=== PATIENT | female | born 1985 | race Hispanic/Latino ===

== ENCOUNTER 2018-12-10 14:08 | Emergency (ER) | payer BC ==
[2018-12-10 15:10] LABS: Absolute Lymphocytes (CBC) 1.5 K/uL (0.7-4.9); Basophils % 0.7 % (0-1.3); Hematocrit 42.4 % (36.0-45.0); Lymphocytes % 20.2 % (15.3-44.8); MPV 10.4 fL (7.6-11.3); RBC Red Blood Cell Count 4.76 M/uL (3.86-4.86)
[2018-12-10] MEDS ORDERED: ONDANSETRON 4 MG/2 ML VIAL ONE (15:19)
[2018-12-10] MEDS ORDERED: NA CHLORIDE 0.9% 1,000 ML ONE (15:19)
[2018-12-10] MEDS ORDERED: MORPHINE 4 MG/ML SYR ONE (15:29)
[2018-12-10 15:52] LABS: Albumin 3.8 g/dL (3.4-5.0); Bilirubin Direct 0.1 mg/dL (0-0.2); Bilirubin Total 0.6 mg/dL (0.2-1.0); Potassium 3.9 mmol/L (3.5-5.1); Protein, Total 8.9 g/dL (6.4-8.2)
--- NOTE | 2018-12-10 16:04 | RAD REPORT ---
EXAM DESCRIPTION: CTAbdomen Pelvis W Contrast - 12/10/2018 3:57 pm CLINICAL HISTORY: Abdominal pain. FLANK PAIN COMPARISON: Extrem Venous W Compress Xavier dated 08/13/2016No comparisonsNo comparisons TECHNIQUE: Biphasic CT imaging of the abdomen and pelvis was performed with 100 ml non-ionic IV cont rast. All CT scans are performed using dose optimization technique as appropriate and may include automated exposure control or mA/KV adjustment according to patient size. FINDINGS: The lung bases are clear. The liver, spleen, pancreas, adrenal glands and kidneys are within normal limits. There is enhancemen t noted of the right uroepithelium. No bowel obstruction, free air, free fluid or abscess. The appendix is normal. No evidence of signi ficant lymphadenopathy. No suspicious bony findings. IMPRESSION: Enhancement of the right uroepithelium is seen, compatible with ascending right-sided ur inary tract infection. No pyelonephritis findings identified.
[2018-12-10 16:24] LABS: Urine Bacteria >50 /HPF (<20); Urine Culture Reflex Order REFLEXED; Urine RBC >50 /HPF (NONE SEEN)
--- NOTE | 2018-12-10 16:27 | ER ---
Nurse's Notes [facility] Name: Mirna Medina Age: 33 yrs Sex: Female : 1985 Arrival Date: 12/10/2018 Time: 14:09 Bed 27 Private MD: Navdeep Daniels Diagnosis: Urinary tract infection, site not specified Presentation: 12/10 14:26 Presenting complaint: Patient states: RLQ pain radiating to mid back this am, yesterday iw had lower abd pain, bladder pressure, painful urination on Friday that resolved. Transition of care: patient was not received from another setting of care. Onset of symptoms was December 07, 2018. Risk Assessment: Do you want to hurt yourself or someone else? Patient reports no desire to harm self or others. Initial Sepsis Screen: Does the patient meet any 2 criteria? No. Patient's initial sepsis screen is negative. Does the patient have a suspected source of infection? No. Patient's initial sepsis screen is negative. Care prior to arrival: None. 14:26 Method Of Arrival: Ambulatory 14:26 Acuity: LEIDA 3 iw Triage Assessment: 15:30 General: Behavior is calm, cooperative, appropriate for age. 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 - Social history:: Smoking status: Patient/guardian denies using tobacco. - Ebola Screening: : Patient negative for fever greater than or equal to 101.5 degrees Fahrenheit, and additional compatible Ebola Virus Disease symptoms Patient denies exposure to infectious person Patient denies travel to an Ebola-affected area in the 21 days before illness onset No symptoms or risks identified at this time. Screenin:41 Abuse screen: Denies threats or abuse. Denies injuries from another. Nutritional screening: No deficits noted. Tuberculosis screening: No symptoms or risk factors identified. Fall Risk None identified. Assessment: 15:30 General: Appears in no apparent distress. uncomfortable. Pain: Complains of pain in wh suprapubic area and right lower quadrant Pain radiates to back Pain currently is 6 out of 10 on a pain scale. Quality of pain is described as dull. Pain: Pain began 1 day ago. Neuro: Level of Consciousness is awake, alert, obeys commands. Cardiovascular: Heart tones S1 S2. Respiratory: Airway is patent Respiratory effort is even, unlabored, Respiratory pattern is regular, symmetrical. GI: Abdomen is flat, non-distended, Bowel sounds present X 4 quads. Abd is soft and non tender X 4 quads. : No signs and/or symptoms were reported regarding the genitourinary system. EENT: No signs and/or symptoms were reported regarding the EENT system. Derm: Skin is intact, is healthy with good turgor, Skin is pink, warm \T\ dry. normal. Musculoskeletal: Range of motion: intact in all extremities. 16:30 Reassessment: Patient appears in no apparent distress at this time. No changes from previously documented assessment. Patient and/or family updated on plan of care and expected duration. Pain level reassessed. Patient is alert, oriented x 3, equal unlabored respirations, skin warm/dry/pink. Patient states feeling better. Patient states symptoms have improved. Vital Signs: 14:34 BP 150 / 81; Pulse 100; Resp 16 S; Temp 98.8; Pulse Ox 100% on R/A; Weight 72.57 kg; iw Height 5 ft. 3 in. (160.02 cm); Pain 5/10; 15:30 BP 123 / 86; Pulse 82; Resp 18; Pulse Ox 99% on R/A; wh 16:30 BP 118 / 80; Pulse 82; Resp 18; Pulse Ox 100% on R/A; wh 14:34 Body Mass Index 28.34 (72.57 kg, 160.02 cm) ED Course: 14:09 Patient arrived in ED. rg4 14:09 Navdeep Daniels MD is Private Physician. rg4 14:21 Richard Evans NP is PHCP. pm1 14:21 Asaf Berg MD is Attending Physician. pm1 14:28 Jean-Claude Abad is Primary Nurse. wh 14:31 Triage completed. iw 14:35 Arm band placed on. iw 14:39 Radiology exam delayed due to lab results not completed at this time. (BUN/Creatinine) sj test not completed at this time. 14:55 Radiology exam delayed due to lab results not completed at this time. test sj not completed at this time. 15:00 Inserted saline lock: 20 gauge in right antecubital area, using aseptic technique. Blood collected. 15:41 Patient has correct armband on for positive identification. Bed in low position. Call light in reach. Side rails up X 1. Pulse ox on. NIBP on. 15:58 CT Abd/Pelvis - IV Contrast Only In Process Unspecified. EDCT 16:42 No provider procedures requiring assistance completed. IV discontinued, intact, bleeding controlled, No redness/swelling at site. Administered Medications: 15:22 Drug: NS 0.9% 1000 ml Route: IV; Rate: 1000 ml; Site: right antecubital; 16:44 Follow up: Response: No adverse reaction; IV Status: Completed infusion 15:22 Drug: Zofran 4 mg Route: IVP; Site: right antecubital; 16:44 Follow up: Response: No adverse reaction; Nausea is decreased 15:30 Drug: morphine 4 mg {Note: RASS 0.} Route: IVP; Site: right antecubital; 16:44 Follow up: Response: No adverse reaction; Pain is decreased; RASS: Alert and Calm (0) Outcome: 16:26 Discharge ordered by MD. pm1 16:43 Discharged to home ambulatory, with family. 16:43 Condition: good 16:43 Discharge instructions given to patient, Instructed on discharge instructions, follow up and referral plans. no drinking with medication, no driving heavy equipment, medication usage, POC UTI Demonstrated understanding of instructions, follow-up care, medications, POC Prescriptions given X 3. 16:45 Patient left the ED. Addendum: 12/13/2018 09:13 Addendum: Culture Results: Positive urine culture. No further action required. Bacteria s s sensitive to prescribed antibiotic. Signatures: Dispatcher [employer] Sana Oseguera Irene, RN RN iw Smirch, Shelby, RN RN ss Marinas, Patrick, SAIMA PRINCIPAL CONSULTING ENGINEER pm1 Kindra Medina4 Jean-Claude Abad
--- NOTE | 2018-12-10 16:28 | EDPHYS ---
Physician Documentation [facility] Name: Mirna Medina Age: 33 yrs Sex: Female : 1985 Arrival Date: 12/10/2018 Time: 14:09 Bed 27 Private MD: Navdeep Daniels ED Physician Asaf Berg HPI: 12/10 14:45 This 33 yrs old Female presents to ER via Ambulatory with complaints of pm1 Abdominal Pain, Low Back Pain. 14:45 The patient presents with abdominal pain right lower quadrant, and right flank pain. pm1 Onset: The symptoms/episode began/occurred yesterday. The symptoms radiate to the right flank. Associated signs and symptoms: Pertinent positives: dysuria, nausea, Pertinent negatives: chest pain, constipation, diarrhea, fever, shortness of breath, vomiting. The symptoms are described as sharp. Modifying factors: The symptoms are alleviated by nothing, the symptoms are aggravated by nothing. Severity of pain: in the emergency department the pain is actually worse. The patient has experienced a previous episode, many years ago, and the symptoms today are exactly the same, UTI. The patient has not recently seen a physician. History of chronic UTI in the past. In 2017 required 3 months of Cipro to resolve UTI. 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 - Social history:: Smoking status: Patient/guardian denies using tobacco. - Ebola Screening: : Patient negative for fever greater than or equal to 101.5 degrees Fahrenheit, and additional compatible Ebola Virus Disease symptoms Patient denies exposure to infectious person Patient denies travel to an Ebola-affected area in the 21 days before illness onset No symptoms or risks identified at this time. ROS: 14:45 Constitutional: Negative for fever, chills, and weight loss, Eyes: Negative for injury, pm1 pain, redness, and discharge, ENT: Negative for injury, pain, and discharge, Neck: Negative for injury, pain, and swelling, Cardiovascular: Negative for chest pain, palpitations, and edema, Respiratory: Negative for shortness of breath, cough, wheezing, and pleuritic chest pain. 14:45 MS/Extremity: Negative for injury and deformity. 14:45 Skin: Negative for injury, rash, and discoloration, Neuro: Negative for headache, weakness, numbness, tingling, and seizure. 14:45 Abdomen/GI: Positive for abdominal pain, nausea, of the right lower quadrant, Negative for vomiting, diarrhea, constipation. 14:45 Back: Positive for flank pain, on the right. 14:45 : Positive for burning with urination. Exam: 14:45 Constitutional: This is a well developed, well nourished patient who is awake, alert, pm1 and in no acute distress. Head/Face: Normocephalic, atraumatic. Eyes: Pupils equal round and reactive to light, extra-ocular motions intact. Lids and lashes normal. Conjunctiva and sclera are non-icteric and not injected. Cornea within normal limits. Periorbital areas with no swelling, redness, or edema. ENT: Nares patent. No nasal discharge, no septal abnormalities noted. Tympanic membranes are normal and external auditory canals are clear. Oropharynx with no redness, swelling, or masses, exudates, or evidence of obstruction, uvula midline. Mucous membranes moist. Neck: Trachea midline, no thyromegaly or masses palpated, and no cervical lymphadenopathy. Supple, full range of motion without nuchal rigidity, or vertebral point tenderness. No Meningismus. Chest/axilla: Normal chest wall appearance and motion. Nontender with no deformity. No lesions are appreciated. Cardiovascular: Regular rate and rhythm with a normal S1 and S2. No gallops, murmurs, or rubs. Normal PMI, no JVD. No pulse deficits. Respiratory: Lungs have equal breath sounds bilaterally, clear to auscultation and percussion. No rales, rhonchi or wheezes noted. No increased work of breathing, no retractions or nasal flaring. Abdomen/GI: Soft, non-tender, with normal bowel sounds. No distension or tympany. No guarding or rebound. No evidence of tenderness throughout. 14:45 Skin: Warm, dry with normal turgor. Normal color with no rashes, no lesions, and no evidence of cellulitis. MS/ Extremity: Pulses equal, no cyanosis. Neurovascular intact. Full, normal range of motion. 14:45 Back: pain, that is mild, of the right low back, normal spinal alignment noted. 14:45 Neuro: Orientation: is normal, Motor: is normal, moves all fours, Gait: is steady, at a normal pace, without difficulty. Vital Signs: 14:34 BP 150 / 81; Pulse 100; Resp 16 S; Temp 98.8; Pulse Ox 100% on R/A; Weight 72.57 kg; iw Height 5 ft. 3 in. (160.02 cm); Pain 5/10; 15:30 BP 123 / 86; Pulse 82; Resp 18; Pulse Ox 99% on R/A; wh 16:30 BP 118 / 80; Pulse 82; Resp 18; Pulse Ox 100% on R/A; wh 14:34 Body Mass Index 28.34 (72.57 kg, 160.02 cm) iw MDM: 14:25 Patient medically screened. pm1 16:25 Data reviewed: vital signs. Data interpreted: Pulse oximetry: on room air is 99 %. pm1 Interpretation: normal. Counseling: I had a detailed discussion with the patient and/or guardian regarding: the historical points, exam findings, and any diagnostic results supporting the discharge/admit diagnosis, lab results, radiology results, the need for outpatient follow up, to return to the emergency department if symptoms worsen or persist or if there are any questions or concerns that arise at home. 12/10 14:33 Order name: Basic Metabolic Panel; Complete Time: 16:07 pm1 12/10 14:33 Order name: CBC with Diff; Complete Time: 15:28 pm1 12/10 14:33 Order name: Creatinine for Radiology; Complete Time: 16:07 pm12/10 14:33 Order name: Hepatic Function; Complete Time: 16:07 pm1 12/10 14:33 Order name: Lipase; Complete Time: 16:07 pm1 12/10 14:33 Order name: Urine Microscopic Only pm12/10 14:33 Order name: IV Saline Lock; Complete Time: 14:58 pm1 12/10 14:33 Order name: CT Abd/Pelvis - IV Contrast Only; Complete Time: 16:18 pm1 12/10 15:05 Order name: Urine Dipstick--Ancillary (enter results) bd 12/10 15:05 Order name: Urine --Ancillary (enter results) 12/10 16:36 Order name: Urine Culture [facility] 12/10 14:33 Order name: Labs collected and sent; Complete Time: 14:58 pm1 12/10 14:33 Order name: Urine Dipstick-Ancillary (obtain specimen); Complete Time: 14:58 pm1 12/10 14:33 Order name: Urine Test (obtain specimen); Complete Time: 14:57 pm1 Administered Medications: 15:22 Drug: NS 0.9% 1000 ml Route: IV; Rate: 1000 ml; Site: right antecubital; 16:44 Follow up: Response: No adverse reaction; IV Status: Completed infusion 15:22 Drug: Zofran 4 mg Route: IVP; Site: right antecubital; 16:44 Follow up: Response: No adverse reaction; Nausea is decreased 15:30 Drug: morphine 4 mg {Note: RASS 0.} Route: IVP; Site: right antecubital; 16:44 Follow up: Response: No adverse reaction; Pain is decreased; RASS: Alert and Calm (0) Disposition: 16:48 Co-signature as Attending Physician, Asaf Berg MD. rn Disposition: 12/10/18 16:26 Discharged to Home. Impression: Urinary tract infection, site not specified. - Condition is Stable. - Discharge Instructions: Urinary Tract Infection, Adult. - Prescriptions for Tylenol- Codeine #3 300-30 mg Oral Tablet - take 2 tablets by ORAL route every 6 hours As needed; 20 tablet. Zofran 4 mg Oral Tablet - take 1 tablet by ORAL route every 12 hours As needed; 20 tablet. Macrobid 100 mg Oral Capsule - take 1 capsule by ORAL route every 12 hours for 10 days; 20 capsule. - Medication Reconciliation Form, Thank You Letter, Antibiotic Education, Prescription Opioid Use form. - Follow up: Emergency Department; When: As needed; Reason: Worsening of condition. Follow up: Private Physician; When: 2 - 3 days; Reason: Recheck today's complaints, Continuance of care, Re-evaluation by your physician. - Problem is new. - Symptoms have improved. Signatures: Dispatcher [employer] Tricia Bridges RN RN iw Nieto, Roman, MD MD rn Marinas, Patrick, RAMP SERVICE EMPLOYEE RAMP SERVICE EMPLOYEE pm1 Habalo, Winsy wh Corrections: (The following items were deleted from the chart) 16:45 16:26 12/10/2018 16:26 Discharged to Home. Impression: Urinary tract infection, site wh not specified. Condition is Stable. Forms are Medication Reconciliation Form, Thank You Letter, Antibiotic Education, Prescription Opioid Use. Follow up: Emergency Department; When: As needed; Reason: Worsening of condition. Follow up: Private Physician; When: 2 - 3 days; Reason: Recheck today's complaints, Continuance of care, Re-evaluation by your physician. Problem is new. Symptoms have improved. pm1
[2018-12-10 16:54] LABS: Urine Blood 3+ (NEG); Urine Glucose NEGATIVE (NEG); Urine Protein 2+ (NEG); Urine Specific Gravity 1.015 (1.005-1.030)
== END 2018-12-10 16:45 | disposition home or self-care (01) ==
LOC: ER 14:08
DX: N39.0 Urinary tract infection, site not specified (principal); Z88.0 Allergy status to penicillin; Z98.82 Breast implant status
CPT/HCPCS: 96361; 87088; 85025; 87086; 80048; 36415; 81025; 80076; 87077; 87186; 83690; 74177; 96375; 96374; 99284; Q9967; J7030; J2405; 81003; 81015

== ENCOUNTER 2020-03-11 04:49 | Emergency (ER) | payer BC ==
[2020-03-11] MEDS ORDERED: ONDANSETRON 4 MG/2 ML VIAL ONE ×2 (05:50→07:27)
[2020-03-11] MEDS ORDERED: MORPHINE 4 MG/ML SYR ONE (05:50)
[2020-03-11] MEDS ORDERED: NA CHLORIDE 0.9% 1,000 ML ONE (05:51)
[2020-03-11 06:05] LABS: Absolute Lymphocytes (CBC) 1.5 K/uL (0.7-4.9); Basophils % 0.9 % (0-1.3); Hematocrit 40.6 % (36.0-45.0); MPV 10.7 fL (7.6-11.3); RBC Red Blood Cell Count 4.64 M/uL (3.86-4.86)
[2020-03-11 06:22] LABS: ALT/SGPT 16 U/L (12-78); AST/SGOT 15 U/L (15-37); Albumin 3.7 g/dL (3.4-5.0); Alkaline Phosphatase 71 U/L (45-117); BUN Blood Urea Nitrogen 13 mg/dL (7-18); Bicarbonate 26 mmol/L (21-32); Bilirubin Direct < 0.1 mg/dL (0-0.2); Bilirubin Total 0.3 mg/dL (0.2-1.0); Glucose Level 93 mg/dL (74-106); Lipase 120 U/L (73-393); Potassium 3.8 mmol/L (3.5-5.1); Protein, Total 8.3 g/dL (6.4-8.2); Sodium Level 139 mmol/L (136-145)
[2020-03-11] MEDS ORDERED: NA CHLORIDE 0.9% 500 ML ONE (07:05)
[2020-03-11] MEDS ORDERED: LIDOCAINE VISCOUS 2% SOLN 15 ML UDC ONE (07:32)
[2020-03-11] MEDS ORDERED: MAGNES/ALUMIN/SIMET 30ML UCUP ONE (07:32)
[2020-03-11] MEDS ORDERED: FAMOTIDINE 20 MG/2 ML VIAL IV ONE (07:32)
--- NOTE | 2020-03-11 08:23 | RAD REPORT ---
EXAM DESCRIPTION: US - Abdomen Exam Limited - 03/11/2020 7:58 am CLINICAL HISTORY: Abdominal pain. COMPARISON: None. FINDINGS: The gallbladder wall is not thickened. A gallstone is not seen. The biliary tree is normal caliber. IMPRESSION: Unremarkable gallbladder ultrasound.
--- NOTE | 2020-03-11 10:20 | RAD REPORT ---
EXAM DESCRIPTION: CT - Abdomen Pelvis W Contrast - 03/11/2020 9:57 am CLINICAL HISTORY: Abdominal pain COMPARISON: 2019 TECHNIQUE: Computed axial tomography of the abdomen pelvis was obtained. 100 cc Isovue-300 was admin istered intravenously. Oral contrast was not requested which limits evaluation of bowel. All CT scans are performed using dose optimization technique as appropriate and may include automated exposure control or mA/KV adjustment according to patient size. FINDINGS: The liver, spleen, pancreas, adrenal and kidneys appear unremarkable. There is no evidence of diverticulitis. A normal appendix 3.5 centimeter right ovarian cyst without significant free fluid. Small umbilical hernia. Couple of air bubbles within the bladder IMPRESSION: 3.5 centimeter right ovarian cyst without significant free fluid. . A couple of air bubbles within the bladder may be secondary to recent instrumentation. Infection can also result in this appearance
[2020-03-11 10:28] LABS: Urine Blood TRACE (NEG); Urine Glucose NEGATIVE (NEG); Urine Protein NEGATIVE (NEG); Urine Specific Gravity 1.015 (1.005-1.030)
--- NOTE | 2020-03-11 10:52 | EDPHYS ---
Physician Documentation [facility] Name: Mirna Medina Age: 34 yrs Sex: Female : 1985 Arrival Date: 03/11/2020 Time: 04:52 Bed 4 Private MD: ED Physician Asaf Berg HPI: 03/11 05:31 This 34 yrs old Female presents to ER via Ambulatory with complaints of pkl Abdominal Cramping. 05:32 The patient presents with abdominal pain in the right upper quadrant. Onset: The pkl symptoms/episode began/occurred 1 week(s) ago. 05:33 The symptoms radiate to right chest and under right breast. Associated signs and pkl symptoms: Pertinent positives: nausea. The patient has not experienced similar symptoms in the past. 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 - Social history:: Smoking status: Patient denies any tobacco usage or history of. ROS: 05:33 Eyes: Negative for injury, pain, redness, and discharge, ENT: Negative for injury, pkl pain, and discharge, Neck: Negative for injury, pain, and swelling, Cardiovascular: Negative for chest pain, palpitations, and edema, Respiratory: Negative for shortness of breath, cough, wheezing, and pleuritic chest pain. 05:33 Abdomen/GI: Positive for abdominal pain, nausea, of the right upper quadrant. 05:33 Back: Negative for acute changes. 05:33 : Negative for urinary symptoms. 05:33 MS/extremity: Negative for acute changes. 05:33 Skin: Negative for rash. 05:33 Neuro: Negative for altered mental status. Exam: 05:33 Head/Face: Normocephalic, atraumatic. Eyes: Pupils equal round and reactive to light, pkl extra-ocular motions intact. Lids and lashes normal. Conjunctiva and sclera are non-icteric and not injected. Cornea within normal limits. Periorbital areas with no swelling, redness, or edema. ENT: Nares patent. No nasal discharge, no septal abnormalities noted. Tympanic membranes are normal and external auditory canals are clear. Oropharynx with no redness, swelling, or masses, exudates, or evidence of obstruction, uvula midline. Mucous membranes moist. Neck: Trachea midline, no thyromegaly or masses palpated, and no cervical lymphadenopathy. Supple, full range of motion without nuchal rigidity, or vertebral point tenderness. No Meningismus. Chest/axilla: Normal chest wall appearance and motion. Nontender with no deformity. No lesions are appreciated. Cardiovascular: Regular rate and rhythm with a normal S1 and S2. No gallops, murmurs, or rubs. Normal PMI, no JVD. No pulse deficits. Respiratory: Lungs have equal breath sounds bilaterally, clear to auscultation and percussion. No rales, rhonchi or wheezes noted. No increased work of breathing, no retractions or nasal flaring. 05:33 Abdomen/GI: Bowel sounds: normal, Palpation: soft, mild abdominal tenderness, in the right upper quadrant. 05:33 Back: Exam negative for acute changes. 05:33 : Exam negative for acute changes. 05:33 Musculoskeletal/extremity: Exam is negative for acute changes. 05:33 Skin: Exam negative for rash. 05:33 Neuro: Orientation: is normal, Mentation: is normal, Cranial nerves: grossly normal, Motor: is normal. Vital Signs: 05:07 BP 144 / 89; Pulse 95; Resp 16 S; Temp 98.9; Pulse Ox 100% on R/A; Weight 71.67 kg (R); sg Height 5 ft. 3 in. (160.02 cm) (R); Pain 8/10; 06:16 BP 105 / 69; Pulse 77; Resp 17; Pulse Ox 97% on R/A; rv 07:35 BP 120 / 77; Pulse 73; Resp 16; Temp 98.6; Pulse Ox 100% ; sv 08:00 BP 115 / 80; Pulse 72; Resp 16; Pulse Ox 100% ; sv 09:00 BP 113 / 71; Pulse 65; Resp 15; Pulse Ox 100% ; sv 10:00 BP 135 / 88; Pulse 61; Resp 16; Pulse Ox 100% ; sv 11:00 BP 109 / 69; Pulse 61; Resp 16; Pulse Ox 100% ; sv 11:26 BP 118 / 70; Pulse 60; Resp 14; Pulse Ox 100% ; sv 05:07 Body Mass Index 27.99 (71.67 kg, 160.02 cm) sg MDM: 05:30 Patient medically screened. pkl 10:34 Differential diagnosis: cholecystitis, Cholelithiasis, gastritis, gastroesophageal rn reflux disease, non-specific abd pain, pancreatitis, Peptic Ulcer Disease, Perf. Duodenal Ulcer, Perf. Gastric Ulcer, urinary tract infection. Data reviewed: vital signs, nurses notes, lab test result(s), radiologic studies, CT scan, ultrasound, and as a result, I will discharge patient. 10:50 Counseling: I had a detailed discussion with the patient and/or guardian regarding: the rn historical points, exam findings, and any diagnostic results supporting the discharge/admit diagnosis, lab results, radiology results, the need for outpatient follow up, to return to the emergency department if symptoms worsen or persist or if there are any questions or concerns that arise at home. Response to treatment: the patient's symptoms have mildly improved after treatment, and as a result, I will discharge patient. Special discussion: I discussed with the patient/guardian in detail that at this point there is no indication for admission to the hospital. It is understood, however, that if the symptoms persist or worsen the patient needs to return immediately for re-evaluation. Based on the history and exam findings, there is no indication for further emergent testing or inpatient evaluation. I discussed with the patient/guardian the need to see the knot tying operator for further evaluation of the symptoms. 03/11 05:38 Order name: Basic Metabolic Panel; Complete Time: 06:26 pkl 03/11 05:38 Order name: CBC with Diff; Complete Time: 06:26 pkl 03/11 05:38 Order name: Hepatic Function; Complete Time: 06:26 pkl 03/11 05:38 Order name: Lipase; Complete Time: 06:26 pkl 03/11 07:09 Order name: Urine Dipstick--Ancillary (enter results); Complete Time: 10:28 mw2 03/11 07:09 Order name: Urine --Ancillary (enter results); Complete Time: 10:28 mw2 03/11 06:35 Order name: US Abdomen Limited; Complete Time: 08:40 pkl 03/11 08:41 Order name: CT Abd/Pelvis - IV Contrast Only; Complete Time: 10:28 rn 03/11 05:38 Order name: IV Saline Lock; Complete Time: 05:46 pkl 12 05:38 Order name: Labs collected and sent; Complete Time: 05:46 pkl Administered Medications: 05:44 Drug: Zofran (Ondansetron) 4 mg Route: IVP; Site: right antecubital; rv 06:17 Follow up: Response: No adverse reaction rv 05:45 Drug: morphine 4 mg {Note: RASS 0.} Route: IVP; Site: right antecubital; rv 06:17 Follow up: Response: No adverse reaction; Marked relief of symptoms; Pain is decreased; rv RASS: Alert and Calm (0) 05:46 Drug: NS 0.9% 1000 ml Route: IV; Rate: 1000 ml; Site: right antecubital; rv 06:58 Follow up: IV Status: Completed infusion; IV Intake: 1000ml rv 06:58 Drug: NS 0.9% 1000 ml Route: IV; Rate: 125 ml/hr; Site: right antecubital; rv 12:00 Follow up: Response: No adverse reaction; IV Status: Order to discontinue infusion sv 07:15 Drug: Zofran (Ondansetron) 4 mg Route: IVP; Site: right antecubital; sv 08:15 Follow up: Response: No adverse reaction sv 07:24 Drug: Pepcid 20 mg Route: IVP; Site: right antecubital; sv 08:15 Follow up: Response: No adverse reaction sv 08:15 Drug: GI Cocktail without - (Maalox Suspension 30 ml, Lidocaine Liquid 2 % 15 sv ml) Route: PO; 09:00 Follow up: Response: No adverse reaction sv 11:14 Drug: Phenergan 12.5 mg Route: IVP; Site: right antecubital; ec1 12:00 Follow up: Response: No adverse reaction; Marked relief of symptoms; Nausea is decreasedsv Disposition: 03/11/20 10:51 Discharged to Home. Impression: Gastritis, unspecified, Unspecified ovarian cysts, Urinary tract infection, site not specified. - Condition is Stable. - Discharge Instructions: Gastritis, Adult, Ovarian Cyst, Urinary Tract Infection, Adult. - Prescriptions for Zofran ODT 4 mg Oral tablet,disintegrating - place 1 tablet by TRANSLINGUAL route every 8 hours As needed; 20 tablet. Protonix 40 mg Oral Tablet - take 1 tablet by ORAL route once daily; 30 tablet. Cipro 500 mg Oral Tablet - take 1 tablet by ORAL route every 12 hours for 7 days; 14 tablet. promethazine 25 mg Oral Tablet - take 1 tablet by ORAL route every 6 hours As needed; 20 tablet. - Medication Reconciliation Form, Thank You Letter, Antibiotic Education, Prescription Opioid Use, Work release form form. - Follow up: David Forte MD; When: As needed; Reason: Recheck today's complaints, Re-evaluation by your physician. - Problem is an ongoing problem. - Symptoms have improved. Signatures: Dispatcher [employer] Barby Zapata, RN RN Luis Eduardo Escoto, RN RN Jabari Butterfield MD MD pkAsaf Medrano MD MD rn Vicente, Ronaldo RN RN rv Brianna Triana RN RN ec1 Corrections: (The following items were deleted from the chart) 05:35 05:32 The symptoms do not radiate. pkl pkl 12:23 10:51 03/11/2020 10:51 Discharged to Home. Impression: Gastritis, unspecified; ec1 Unspecified ovarian cysts; Urinary tract infection, site not specified. Condition is Stable. Forms are Medication Reconciliation Form, Thank You Letter, Antibiotic Education, Prescription Opioid Use. Follow up: David Forte; When: As needed; Reason: Recheck today's complaints, Re-evaluation by your physician. Problem is an ongoing problem. Symptoms have improved. rn
--- NOTE | 2020-03-11 10:52 | ER ---
Nurse's Notes [facility] Name: Mirna Medina Age: 34 yrs Sex: Female : 1985 Arrival Date: 03/11/2020 Time: 04:52 Bed 4 Private MD: Diagnosis: Gastritis, unspecified;Unspecified ovarian cysts;Urinary tract infection, site not specified Presentation: 03/11 05:07 Chief complaint: Patient states: Epigastric pain that radiates to the right side of sg chest under right breast area, pt complaining of having nausea as well, denies any other symptoms at this time. pt states having had this pain since Friday, states was prescribed zofran with no relief. pt denies fever/chills. at this time for triage. Coronavirus screen: Client denies travel out of the [place] in the last 14 days. nausea, Client presents with at least one sign or symptom that may indicate coronavirus-19. Provider contacted for isolation considerations. Ebola Screen: Patient negative for fever greater than or equal to 101.5 degrees Fahrenheit, and additional compatible Ebola Virus Disease symptoms Patient denies exposure to infectious person. Patient denies travel to an Ebola-affected area in the 21 days before illness onset. No symptoms or risks identified at this time. Initial Sepsis Screen: Does the patient meet any 2 criteria? No. Patient's initial sepsis screen is negative. Does the patient have a suspected source of infection? Yes: Acute abdominal pain. Risk Assessment: Do you want to hurt yourself or someone else? Patient reports no desire to harm self or others. Onset of symptoms was March 07, 2020. Care prior to arrival: None. Transition of care: patient was not received from another setting of care. 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 - Social history:: Smoking status: Patient denies any tobacco usage or history of. Screenin:47 Abuse screen: Denies threats or abuse. Denies injuries from another. Nutritional rv screening: No deficits noted. Tuberculosis screening: No symptoms or risk factors identified. Fall Risk None identified. Assessment: 05:47 General: Appears uncomfortable, Behavior is calm, cooperative. Pain: Complains of pain rv in right upper quadrant Pain currently is 5 out of 10 on a pain scale. Neuro: Level of Consciousness is awake, alert, obeys commands, Oriented to person, place, time, situation. Cardiovascular: Patient's skin is warm and dry. Respiratory: Airway is patent Respiratory effort is even, unlabored, Breath sounds are clear bilaterally. GI: Bowel sounds present X 4 quads. Abdomen is tender to palpation in right upper quadrant. Derm: Skin is healthy with good turgor. 07:10 General: Appears in no apparent distress. uncomfortable, well developed, Behavior is sv calm, cooperative, appropriate for age. Pain: Complains of pain in epigastric area and right upper quadrant Pain currently is 5 out of 10 on a pain scale. Is continuous. Neuro: Level of Consciousness is awake, alert, obeys commands, Oriented to person, place, time, situation, Moves all extremities. Full function. Respiratory: Airway is patent Respiratory effort is even, unlabored, Respiratory pattern is regular, symmetrical. GI: Abdomen is flat, Reports upper abdominal pain, epigastric pain, nausea. Derm: Skin is intact, Skin is pink, warm \T\ dry. 07:57 Reassessment: Ultrasound complete. sv 08:45 Reassessment: Patient appears in no apparent distress at this time. Patient and/or sv family updated on plan of care and expected duration. Pain level reassessed. Patient is alert, oriented x 3, equal unlabored respirations, skin warm/dry/pink. 12:00 Reassessment: Patient appears in no apparent distress at this time. Patient and/or sv family updated on plan of care and expected duration. Pain level reassessed. Patient is alert, oriented x 3, equal unlabored respirations, skin warm/dry/pink. Patient states feeling better. Patient states symptoms have improved. Vital Signs: 05:07 BP 144 / 89; Pulse 95; Resp 16 S; Temp 98.9; Pulse Ox 100% on R/A; Weight 71.67 kg (R); sg Height 5 ft. 3 in. (160.02 cm) (R); Pain 8/10; 06:16 BP 105 / 69; Pulse 77; Resp 17; Pulse Ox 97% on R/A; rv 07:35 BP 120 / 77; Pulse 73; Resp 16; Temp 98.6; Pulse Ox 100% ; sv 08:00 BP 115 / 80; Pulse 72; Resp 16; Pulse Ox 100% ; sv 09:00 BP 113 / 71; Pulse 65; Resp 15; Pulse Ox 100% ; sv 10:00 BP 135 / 88; Pulse 61; Resp 16; Pulse Ox 100% ; sv 11:00 BP 109 / 69; Pulse 61; Resp 16; Pulse Ox 100% ; sv 11:26 BP 118 / 70; Pulse 60; Resp 14; Pulse Ox 100% ; sv 05:07 Body Mass Index 27.99 (71.67 kg, 160.02 cm) sg ED Course: 04:52 Patient arrived in ED. cl3 05:07 Arm band placed on. sg 05:12 Triage completed. sg 05:30 Jabari Araujo MD is Attending Physician. pkl 05:35 Jose D Pittman RN is Primary Nurse. rv 05:40 Initial lab(s) drawn, by in, sent to lab. Inserted saline lock: 20 gauge in right rv antecubital area, using aseptic technique. Blood collected. 05:47 Patient has correct armband on for positive identification. Bed in low position. Call rv light in reach. Side rails up X 1. Pulse ox on. NIBP on. 07:06 Primary Nurse role handed off by Jose D Pittman RN sv 07:06 Barby Jarquin, RN is Primary Nurse. sv 07:10 Awaiting: Ultrasound. sv 07:11 Attending Physician role handed off by Jabari Araujo MD rn 07:11 Asaf Berg MD is Attending Physician. rn 07:38 Awaiting: Ultrasound. sv 07:56 US Abdomen Limited In Process Unspecified. EDMS 09:58 CT Abd/Pelvis - IV Contrast Only In Process Unspecified. EDMS 10:51 David Forte MD is Referral Physician. rn 11:33 IV discontinued, intact, bleeding controlled, Pressure dressing applied. ec1 11:33 No provider procedures requiring assistance completed. ec1 Administered Medications: 05:44 Drug: Zofran (Ondansetron) 4 mg Route: IVP; Site: right antecubital; rv 06:17 Follow up: Response: No adverse reaction rv 05:45 Drug: morphine 4 mg {Note: RASS 0.} Route: IVP; Site: right antecubital; rv 06:17 Follow up: Response: No adverse reaction; Marked relief of symptoms; Pain is decreased; rv RASS: Alert and Calm (0) 05:46 Drug: NS 0.9% 1000 ml Route: IV; Rate: 1000 ml; Site: right antecubital; rv 06:58 Follow up: IV Status: Completed infusion; IV Intake: 1000ml rv 06:58 Drug: NS 0.9% 1000 ml Route: IV; Rate: 125 ml/hr; Site: right antecubital; rv 12:00 Follow up: Response: No adverse reaction; IV Status: Order to discontinue infusion sv 07:15 Drug: Zofran (Ondansetron) 4 mg Route: IVP; Site: right antecubital; sv 08:15 Follow up: Response: No adverse reaction sv 07:24 Drug: Pepcid 20 mg Route: IVP; Site: right antecubital; sv 08:15 Follow up: Response: No adverse reaction sv 08:15 Drug: GI Cocktail without - (Maalox Suspension 30 ml, Lidocaine Liquid 2 % 15 sv ml) Route: PO; 09:00 Follow up: Response: No adverse reaction sv 11:14 Drug: Phenergan 12.5 mg Route: IVP; Site: right antecubital; ec1 12:00 Follow up: Response: No adverse reaction; Marked relief of symptoms; Nausea is decreasedsv Intake: 06:58 IV: 1000ml; Total: 1000ml. rv Outcome: 10:51 Discharge ordered by . rn 12:22 Discharged to home ambulatory. ec1 12:22 Condition: good 12:22 Discharge instructions given to patient, Instructed on discharge instructions, follow up and referral plans. Demonstrated understanding of instructions, follow-up care, medications, Prescriptions given X 3. 12:23 Patient left the ED. ec1 Signatures: Dispatcher [employer] Barby Zapata RN RN sv Gay, Steven, RN RN sg Lam, Pin, MD MD pkl Nieto, Roman, MD MD rn Vicente, Ronaldo, RN RN rv Lewis, Charde cl3 Brianna Triana RN RN ec1 Corrections: (The following items were deleted from the chart) 07:31 07:10 General: Appears in no apparent distress. uncomfortable, well developed, Behavior sv is calm, cooperative, sv
[2020-03-11] MEDS ORDERED: PROMETHAZINE INJ 25 MG/ML AMP ONE (11:10)
[2020-03-11] MEDS ORDERED: NA CHLORIDE 0.9% 50 ML ONE (11:20)
[2020-03-16 02:27] VITALS: TEMP 98.6; O2SAT 100
[2020-03-16 02:34] VITALS: BP 118/70
== END 2020-03-11 12:23 | disposition home or self-care (01) ==
LOC: ER 04:49
DX: K29.70 Gastritis, unspecified, without bleeding (principal); N39.0 Urinary tract infection, site not specified; N83.209 Unspecified ovarian cyst, unspecified side; Z20.828 Contact with and (suspected) exposure to other viral communicable diseases; Z88.0 Allergy status to penicillin; Z98.82 Breast implant status
CPT/HCPCS: 96361; 85025; 80048; 36415; 81025; 80076; 81003; 83690; 74177; 76705; 96375; 96374; 99284; U0003; Q9967; J2550; J7040; J7030; J2405 ×2